=== PATIENT | male | born 1950 | race Caucasian/White ===

== ENCOUNTER 2020-04-28 23:42 | Emergency (ER) | payer MEDICARE, BC ==
[2020-04-28] MEDS ORDERED: Sodium Chloride 0.9% 10 ML Syringe FLUSH PRN (23:48)
[2020-04-28] MEDS ORDERED: Nitroglycerin 0.4 MG Tab.SL SL PRN (23:55)
[2020-04-28] MEDS ORDERED: Pantoprazole 40 MG Vial IVPUSH ONE (23:57)
--- NOTE | 2020-04-29 00:02 | EDM.PDOC ---
ED HPI GENERAL MEDICAL PROBLEM - General Chief Complaint: Cardiovascular Problem Stated Complaint: CHEST PAIN Time Seen by Provider: 04/28/20 23:57 Source of Information: Reports: Patient History Limitations: Reports: No Limitations - History of Present Illness INITIAL COMMENTS - FREE TEXT/NARRATIVE: Patient developed non-radiating substernal chest heaviness at 2300 tonight. De nies SOB. No prior h/o CAD. Patient took ASA 650mg PO this evening. PMHx includes TIA, HTN, and Anxiety. Onset Date: 04/28/20 Onset Time: 23:00 Duration: Hour(s): (1) Location: Reports: Chest Quality: Reports: Pressure Severity: Moderate mid chest/upper, mid abd Pain Score (Numeric/FACES): 7 - Related Data Allergies Allergy/AdvReac Type Severity Reaction Status Date / Time No Known Allergies Allergy Verified 04/29/20 00:38 Home Meds: Home Meds Acetaminophen/HYDROcodone [Stuart 325-5 MG] 1 - 2 tab PO Q6H PRN #16 tab 04/29/20 [Rx] Aspirin 325 mg PO BEDTIME 04/29/20 [History] Clopidogrel [Plavix] 75 mg PO BEDTIME 04/29/20 [History] Sertraline [Zoloft] 100 mg PO BEDTIME 04/29/20 [History] atorvaSTATin [Lipitor] 40 mg PO BEDTIME 04/29/20 [History] lisinopriL [Lisinopril] 10 mg PO BEDTIME 04/29/20 [History] Past Medical History Cardiovascular History: Reports: Hypertension. Denies: CAD, [place] Neurological History: Reports: TIA Psychiatric History: Reports: Anxiety ED ROS GENERAL - Review of Systems Review Of Systems: Comprehensive ROS is negative, except as noted in HPI. ED EXAM, GENERAL - Physical Exam Exam: See Below Exam Limited By: No Limitations General Appearance: Alert, WD/WN, No Apparent Distress Throat/Mouth: No Airway Compromise Head: Atraumatic, Normocephalic Neck: Full Range of Motion Respiratory/Chest: No Respiratory Distress, Lungs Clear, Normal Breath Sounds, Chest Non-Tender Cardiovascular: Regular Rate, Rhythm, No Gallop, No Murmur GI/Abdominal: Soft, No Distention, Tender (epigastric and RUQ) Extremities: Normal Range of Motion, Non-Tender Neurological: Alert, Normal Cognition Psychiatric: Normal Affect, Normal Mood Skin Exam: Warm, Dry, Intact #1 Interpretation EKG Date: 04/28/20 Time: 23:46 Rhythm: NSR Rate (Beats/Min): 51 [place]: Normal P-Wave: Present QRS: Normal ST-T: Normal QT: Normal Comparison: NA - No Prior EKG #2 Interpretation EKG Date: 04/29/20 Time: 00:25 Rhythm: Other (Sinus bradycardia) Rate (Beats/Min): 48 [place]: Normal P-Wave: Present QRS: Normal ST-T: Normal QT: Normal Comparison: No Change Course - Vital Signs Last Recorded V/S: Last Vital Signs Temp 36.2 C 04/28/20 23:42 Pulse 53 L 04/29/20 00:04 Resp 19 04/28/20 23:42 BP 130/76 04/29/20 00:04 Pulse Ox 99 04/28/20 23:42 - Orders/Labs/Meds Orders: Active Orders 24 hr Category Date Time Status EKG Documentation Completion [RC] ASDIRECTED Care 04/28/20 23:48 Active EKG Documentation Completion [RC] ASDIRECTED Care 04/29/20 00:26 Active Ang Chest [CT] Stat Exams 04/29/20 00:27 Taken CXR [Chest 1V Frontal] [CR] Stat Exams 04/28/20 23:47 Taken Nitroglycerin [Nitrostat] Med 04/28/20 23:55 Active 0.4 mg SL Q5M PRN Sodium Chloride 0.9% [Saline Flush] Med 04/28/20 23:48 Active 10 ml FLUSH ASDIRECTED PRN Saline Lock Insert [OM.PC] Routine Oth 04/28/20 23:48 Ordered EKG 12 Lead [EK] Stat Ther 04/28/20 23:47 Ordered EKG 12 Lead [EK] Stat Ther 04/29/20 00:26 Ordered Medication Orders Nitroglycerin (Nitrostat) 0.4 mg SL Q5M PRN PRN Reason: Chest Pain Last Admin: 04/29/20 00:00 Dose: 0.4 mg Documented by: NITHIN Sodium Chloride (Saline Flush) 10 ml FLUSH ASDIRECTED PRN PRN Reason: Keep Vein Open Last Admin: 04/29/20 00:57 Dose: 10 ml Documented by: [email or web address] Labs: Laboratory Tests 04/28/20 04/28/20 04/28/20 Range/Units 23:55 23:55 23:55 WBC 7.1 (3.2-10.1) x10-3/uL RBC 4.88 (3.90-5.90) x10(6)uL Hgb 15.0 (12.9-17.7) g/dL Hct 45.3 (38.3-50.1) % MCV 92.8 (80.8-98.7) fL MCH 30.8 (27.0-33.3) pg MCHC 33.2 (28.7-35.3) g/dL RDW 13.3 (12.4-15.0) % Plt Count 165 (117-477) x10(3)uL MPV 8.6 (6.7-11.0) fL Neut % (Auto) 60.4 (40.3-71.8) % Lymph % (Auto) 28.4 (15.8-45.3) % [place] % (Auto) 8.8 (5.5-15.2) % Eos % (Auto) 1.6 (0.1-6.8) % Baso % (Auto) 0.8 (0.3-3.8) % Neut # (Auto) 4.3 (1.7-6.9) x10-3/uL Lymph # (Auto) 2.0 (0.5-4.5) x10-3/uL [place] # (Auto) 0.6 (0.0-1.2) x10-3/uL Eos # (Auto) 0.1 (0.0-0.6) x10-3/uL Baso # (Auto) 0.1 (0.0-0.3) x10-3/uL PT 10.0 (9.0-11.1) sec INR 0.93 L (1.00-1.24) APTT 22.9 L (24.4-33.2) SECONDS D-Dimer, Quantitative (0.0-0.59) mg/LFEU Sodium 139 (135-145) mmol/L Potassium 4.2 (3.5-5.3) mmol/L Chloride 104 (100-110) mmol/L Carbon Dioxide 26 (21-32) mmol/L BUN 28 H (7-18) mg/dL Creatinine 1.6 H (0.70-1.30) mg/dL Est Cr Clr Drug Dosing TNP Estimated GFR (MDRD) 43 L (>60) BUN/Creatinine Ratio 17.5 (9-20) Glucose 121 H (80-116) mg/dL Calcium 8.6 (8.6-10.2) mg/dL Total Bilirubin 0.5 (0.1-1.3) mg/dL AST 12 (5-25) IU/L ALT 20 (12-36) U/L Alkaline Phosphatase 64 (56-112) IU/L Troponin I (4.0-60.3) pg/mL Total Protein 6.4 (6.0-8.0) g/dL Albumin 3.6 (3.2-4.6) g/dL Globulin 2.8 g/dL Albumin/Globulin Ratio 1.3 Lipase (73-393) U/L 04/28/20 04/28/20 04/28/20 Range/Units 23:55 23:55 23:55 WBC (3.2-10.1) x10-3/uL RBC (3.90-5.90) x10(6)uL Hgb (12.9-17.7) g/dL Hct (38.3-50.1) % MCV (80.8-98.7) fL MCH (27.0-33.3) pg MCHC (28.7-35.3) g/dL RDW (12.4-15.0) % Plt Count (117-477) x10(3)uL MPV (6.7-11.0) fL Neut % (Auto) (40.3-71.8) % Lymph % (Auto) (15.8-45.3) % [place] % (Auto) (5.5-15.2) % Eos % (Auto) (0.1-6.8) % Baso % (Auto) (0.3-3.8) % Neut # (Auto) (1.7-6.9) x10-3/uL Lymph # (Auto) (0.5-4.5) x10-3/uL [place] # (Auto) (0.0-1.2) x10-3/uL Eos # (Auto) (0.0-0.6) x10-3/uL Baso # (Auto) (0.0-0.3) x10-3/uL PT (9.0-11.1) sec INR (1.00-1.24) APTT (24.4-33.2) SECONDS D-Dimer, Quantitative 1.30 H (0.0-0.59) mg/LFEU Sodium (135-145) mmol/L Potassium (3.5-5.3) mmol/L Chloride (100-110) mmol/L Carbon Dioxide (21-32) mmol/L BUN (7-18) mg/dL Creatinine (0.70-1.30) mg/dL Est Cr Clr Drug Dosing Estimated GFR (MDRD) (>60) BUN/Creatinine Ratio (9-20) Glucose (80-116) mg/dL Calcium (8.6-10.2) mg/dL Total Bilirubin (0.1-1.3) mg/dL AST (5-25) IU/L ALT (12-36) U/L Alkaline Phosphatase (56-112) IU/L Troponin I 11.0 (4.0-60.3) pg/mL Total Protein (6.0-8.0) g/dL Albumin (3.2-4.6) g/dL Globulin g/dL Albumin/Globulin Ratio Lipase 147 (73-393) U/L 04/29/20 Range/Units 04:00 WBC (3.2-10.1) x10-3/uL RBC (3.90-5.90) x10(6)uL Hgb (12.9-17.7) g/dL Hct (38.3-50.1) % MCV (80.8-98.7) fL MCH (27.0-33.3) pg MCHC (28.7-35.3) g/dL RDW (12.4-15.0) % Plt Count (117-477) x10(3)uL MPV (6.7-11.0) fL Neut % (Auto) (40.3-71.8) % Lymph % (Auto) (15.8-45.3) % [place] % (Auto) (5.5-15.2) % Eos % (Auto) (0.1-6.8) % Baso % (Auto) (0.3-3.8) % Neut # (Auto) (1.7-6.9) x10-3/uL Lymph # (Auto) (0.5-4.5) x10-3/uL [place] # (Auto) (0.0-1.2) x10-3/uL Eos # (Auto) (0.0-0.6) x10-3/uL Baso # (Auto) (0.0-0.3) x10-3/uL PT (9.0-11.1) sec INR (1.00-1.24) APTT (24.4-33.2) SECONDS D-Dimer, Quantitative (0.0-0.59) mg/LFEU Sodium (135-145) mmol/L Potassium (3.5-5.3) mmol/L Chloride (100-110) mmol/L Carbon Dioxide (21-32) mmol/L BUN (7-18) mg/dL Creatinine (0.70-1.30) mg/dL Est Cr Clr Drug Dosing Estimated GFR (MDRD) (>60) BUN/Creatinine Ratio (9-20) Glucose (80-116) mg/dL Calcium (8.6-10.2) mg/dL Total Bilirubin (0.1-1.3) mg/dL AST (5-25) IU/L ALT (12-36) U/L Alkaline Phosphatase (56-112) IU/L Troponin I 8.2 (4.0-60.3) pg/mL Total Protein (6.0-8.0) g/dL Albumin (3.2-4.6) g/dL Globulin g/dL Albumin/Globulin Ratio Lipase (73-393) U/L Meds: Medications Generic Name Dose Route Start Last Admin Trade Name Freq PRN Reason Stop Dose Admin Nitroglycerin 0.4 mg 04/28/20 23:55 04/29/20 00:00 Nitrostat SL 0.4 mg Q5M PRN Administration Chest Pain Sodium Chloride 10 ml 04/28/20 23:48 04/29/20 00:57 Saline Flush FLUSH 10 ml ASDIRECTED PRN Administration Keep Vein Open Discontinued Medications Generic Name Dose Route Start Last Admin Trade Name Freq PRN Reason Stop Dose Admin Hydrocodone Bitart/Acetaminophen 1 tab 04/29/20 02:04 04/29/20 02:07 Stuart 325-5 Mg PO 04/29/20 02:05 1 tab ONETIME ONE Administration Sodium Chloride 500 mls @ 500 mls/hr 04/29/20 00:11 04/29/20 00:05 Normal Saline IV 04/29/20 01:10 500 mls/hr .BOLUS ONE Administration Iopamidol 100 ml 04/29/20 00:38 04/29/20 00:56 Isovue-370 (76%) IV 04/29/20 00:39 95 ml ONETIME ONE Administration Morphine Sulfate 4 mg 04/29/20 00:39 04/29/20 01:56 Morphine IVPUSH 04/29/20 00:40 Not Given ONETIME ONE Ondansetron HCl 4 mg 04/29/20 00:10 04/29/20 00:19 Zofran IVPUSH 04/29/20 00:11 4 mg ONETIME ONE Administration Pantoprazole Sodium 40 mg 04/28/20 23:57 04/29/20 00:20 Protonix Iv IVPUSH 04/28/20 23:58 40 mg ONETIME ONE Administration - Radiology Interpretation Free Text/Narrative:: CTA Chest: IMPRESSION: No sign of pulmonary embolism. Heart top normal in size with moderate LAD and mild LCX and RCA coronary calcification. Mild cholelithiasis with a single dominant 2.0 centimeter calculus. Dictated by Gerardo Gottlieb MD @ Apr 29 2020 1:51AM - Re-Assessments/Exams Free Text/Narrative Re-Assessment/Exam: 04/29/20 00:41 Chest pain improved from 7/10 to 5/10 after NTG SL x 1, but he became dizzy and nauseas with a SBP in the 80's. SBP improved to 120's after 500ml NS IV bolus. 04/29/20 01:42 Pain now localized only to RUQ. Patient no longer having substernal pain. Departure - Departure Time of Disposition: 04:40 Disposition: Home, Self-Care 01 Condition: Good Clinical Impression: Atypical chest pain, Biliary colic Cholelithiasis Qualifiers: Cholelithiasis location: gallbladder Cholecystitis presence: without cholecystitis Biliary obstruction: without biliary obstruction Qualified Code(s): K80.20 - Calculus of gallbladder without cholecystitis without obstruction Prescriptions: Acetaminophen/HYDROcodone [Stuart 325-5 MG] 1 - 2 tab PO Q6H PRN #16 tab PRN Reason: Pain Instructions: Nonspecific Chest Pain, Adult, [id number], Cholelithiasis, [id number], Cholelithiasis, Biliary Colic, Adult Referrals: Rosales Lagos MD [Physician] - 2 Days Enoch Medina MD [Physician] - 2 Days Forms: ED Department Discharge Additional Instructions: Fill the prescription for Stuart at [facility] and take as directed. Eat a low fat diet. Follow up with your primary physician and general surgeon in 2-3 days. Return to the ER if symptoms worsen. Sepsis Event Note (ED) - Focused Exam Vital Signs: Vital Signs Temp Pulse Resp BP BP Pulse Ox 04/29/20 00:04 53 L 130/76 04/29/20 00:00 130/80 04/28/20 23:59 53 L 133/71 04/28/20 23:42 36.2 C 57 L 19 172/79 H 99 - My Orders Last 24 Hours: My Active Orders 04/28/20 23:47 CXR [Chest 1V Frontal] [CR] Stat EKG 12 Lead [EK] Stat 04/28/20 23:48 EKG Documentation Completion [RC] ASDIRECTED Sodium Chloride 0.9% [Saline Flush] 10 ml FLUSH ASDIRECTED PRN Saline Lock Insert [OM.PC] Routine 04/28/20 23:55 Nitroglycerin [Nitrostat] 0.4 mg SL Q5M PRN 04/29/20 00:26 EKG Documentation Completion [RC] ASDIRECTED EKG 12 Lead [EK] Stat 04/29/20 00:27 Ang Chest [CT] Stat - Assessment/Plan Last 24 Hours: My Active Orders 04/28/20 23:47 CXR [Chest 1V Frontal] [CR] Stat EKG 12 Lead [EK] Stat 04/28/20 23:48 EKG Documentation Completion [RC] ASDIRECTED Sodium Chloride 0.9% [Saline Flush] 10 ml FLUSH ASDIRECTED PRN Saline Lock Insert [OM.PC] Routine 04/28/20 23:55 Nitroglycerin [Nitrostat] 0.4 mg SL Q5M PRN 04/29/20 00:26 EKG Documentation Completion [RC] ASDIRECTED EKG 12 Lead [EK] Stat 04/29/20 00:27 Ang Chest [CT] Stat
[2020-04-29] MEDS ORDERED: Ondansetron 4 MG/2 ML SDV IVPUSH ONE (00:10)
[2020-04-29] MEDS ORDERED: Sodium Chloride 0.9% 500 ML IV ONE (00:11)
[2020-04-29] MEDS ORDERED: Iopamidol 755 Mg/ML 100 ML Bottle IV ONE (00:38)
[2020-04-29] MEDS ORDERED: Morphine 4 MG/ML VIAL IVPUSH ONE (00:39)
[2020-04-29] MEDS ORDERED: Acetaminophen/HYDROcodone 325-5 MG Tab PO ONE (02:04)
--- NOTE | 2020-05-01 13:04 | CR ---
INDICATION: Chest pain. CHEST ONE VIEW: An AP upright portable view of the chest was obtained 04/29/20 and revealed relatively poor inspiration emphasizing markings and making it difficult to exclude areas of pneumonia in the mid to lower lung cheek. It is also difficult to exclude a mild degree of CHF and interstitial lung edema. The heart did not appear grossly enlarged. The aorta is somewhat tortuous. Overlying EKG leads are noted. Evidence of exogenous obesity is noted. When clinically possible, full inspiration PA and lateral views of the chest may be helpful for further evaluation. MTDD
== END 2020-04-29 04:55 | disposition home or self-care (01) ==
LOC: FB.ED 23:42
DX: K80.70 Calculus of gallbladder and bile duct without cholecystitis without obstruction (principal); I10 Essential (primary) hypertension; Z86.73 Personal history of transient ischemic attack (TIA), and cerebral infarction without residual deficits; Z79.82 Long term (current) use of aspirin; Z79.899 Other long term (current) drug therapy; Z79.02 Long term (current) use of antithrombotics/antiplatelets
CPT/HCPCS: 36415; 71045; 71275; 80053; 83690; 84484; 85025; 85379; 85610; 85730; 93005; 93010; 96374; 96375; 99284; 99285-25; A9270-GY; C9113; J2405; J7040; Q9967